=== PATIENT | male | born 1960 | race Caucasian/White ===

== ENCOUNTER 2017-01-14 04:12 | Emergency (ER) | payer OTHER ==
[2017-01-14] MEDS ORDERED: FLUORESCEIN SODIUM 1 MG STRIP OP ONE ×2 (04:17→04:21)
[2017-01-14] MEDS ORDERED: PROPARACAINE 0.5% 15 ML OPHT DROP ONE (04:17)
[2017-01-14] MEDS ORDERED: PROPARACAINE 0.5% 15 ML OPHT DROP RTEYE ONE (04:21)
--- NOTE | 2017-01-14 04:53 | EDPHY ---
H & P Stated Complaint: severe R eye pain, denies trauma HPI/ROS: HPI CHIEF COMPLAINT: Right eye pain HISTORY OF PRESENT ILLNESS: Patient very pleasant 56-year-old male, presents emergency room with right eye pain that started around 6:00 a.m. or close 24 hours ago yesterday. Patient states that he woke up with some right eye discomfort persisted all day describes a sharp stabbing pain to his right eye. Photosensitivity. He denies direct trauma. Had pain all day. The pain is progressively gotten worse throughout the evening and was unable to sleep last night decided come the emergency room. Has been very tearful. Had no loss of vision. No blurry vision. Describes the pain as sharp stabbing. Tells me he has been dealing with some intermittent right eye pain over the past year he did have trauma to his right eye with a tree branch approximately 8 months ago. He lives in [place]. He was seen by his general practitioner as well as a nurse supervisor and had an eye exam and was told that everything was okay. He has no history of glaucoma. He is here on vacation he woke up yesterday with severe eye pain that has been persistent and got worse. He denies any direct trauma. Past Medical History: No significant medical history Past Surgical History: No significant surgical Social History: Denies daily use drugs alcohol tobacco products here with his , from [place]. Family History: Noncontributory ROS REVIEW OF SYSTEMS: A comprehensive 10 point review of systems is otherwise negative aside from elements mentioned in the history of present illness. Exam Constitutional triage nursing summary reviewed, vital signs reviewed, awake/ alert. Eyes Right EYE: Injected conjunctiva, pupil equal round react to light 4 mm and reactive, anterior chamber shows no flare on slit-lamp, there is no fluorescein uptake on exam. The pupil is not irregular. Posterior eye exam without dilatation is unremarkable. The globe is soft. No significant proptosis. It is noted that the upper and lower eyelid is swollen. There is no erythema or discharge. No Rhea sign. Extraocular movements intact. Visual acuity reviewed. I did check his eye pressure with the Helio-Pen 16, 14, 18 Right eye. I did henri his lids best as possible I do not appreciate foreign body. There is no corneal abrasion on exam. Left eye exam is normal. Unremarkable conjunctiva. Normal anterior chamber. Normal pupil. No APD. I did instill proparacaine in his right eye which gave him great relief. Pain well controlled. HENT normal inspection, atraumatic, moist mucus membranes, no epistaxis, neck supple/ no meningismus, no raccoon eyes. Respiratory clear to auscultation bilaterally, normal breath sounds, no respiratory distress, no wheezing. Cardiovascular rate normal, regular rhythm, no murmur, no edema, distal pulses normal. Gastrointestinal soft, non-tender, no rebound, no guarding, normal bowel sounds, no distension, no pulsatile mass. Genitourinary no CVA tenderness. Musculoskeletal no midline vertebral tenderness, full range of motion, no calf swelling, no tenderness of extremities, no meningismus, good pulses, neurovascularly intact. Skin pink, warm, & dry, no rash, skin atraumatic. Neurologic awake, alert and oriented x 3, AAOx3, moves all 4 extremities equally, motor intact, sensory intact, CN II-XII intact, normal cerebellar, normal vision, normal speech. Psychiatric normal mood/affect. Heme/Lymph/Immune no lymphadenopathy. Differential Diagnosis: Includes but is not limited to in a particular order, corneal abrasion, iritis, uveitis, foreign body, corneal abrasion, glaucoma retro-orbital tumor, redness detachment. Medical Decision Making: Plan for this patient will be after eye exam, proparacaine, fluorescein, slit-lamp exam, Helio-Pen exam, CT of the orbit. Also will consult Ophthalmology. Will most likely need to place patient on pain medicine antibiotic and a drops prophylactically and close ophthalmology follow-up. Re-evaluation: [id number]: I did do a bedside ultrasound of this patient's eye. The posterior chamber looks good on ultrasound. There is no vitreous hemorrhage. No debris. Redness does not appear abnormal. There is no newspaper sign. The lens appears to be in appropriate position anterior chamber shows no debris. Unremarkable orbit ultrasound the right eye. Images were saved on the ultrasound machine. Due To the amount of pain the patient is having I did send him to CT scan of his orbit. Rule out foreign body or something posterior to his eye. There is no proptosis on exam. CT scan of the orbit. The results of the study are negative for foreign body, no evidence of mass, unremarkable CT scan of the orbits. The study was read by Dr. Leonard. I viewed the images myself on the PACS system. V/A Reviewed. 0517: Consulted Opthomalogy at this time. Dr. Pino should be glad to see this patient office. She does recommend erythromycin ointment. Patient is to call their for an appointment. Should be seen today. 0521: Patient is resting comfortably feels much better after proparacaine eyedrops. I did consult Ophthalmology and spoke with her. She be glad to see the patient today. Recommends erythromycin ointment. I will place him on this. Ibuprofen cool compresses Hellier. She feels is most likely a corneal issue given a gets better with proparacaine. Source: Patient - Personal History Current Tetanus/Diphtheria Vaccine: Unsure - Medical/Surgical History Hx Asthma: No Hx Chronic Respiratory Disease: No Hx Diabetes: No Hx Cardiac Disease: No Hx Renal Disease: No Hx Cirrhosis: No Hx Alcoholism: No Hx HIV/AIDS: No Hx Splenectomy or Spleen Trauma: No Other PMH: none - Social History Smoking Status: Never smoked Constitutional: Initial Vital Signs Temperature (C) 36 C 01/14/17 04:14 Heart Rate 56 L 01/14/17 04:14 Respiratory Rate 22 H 01/14/17 04:14 Blood Pressure 190/94 H 01/14/17 04:14 O2 Sat (%) 98 01/14/17 04:14 O2 Delivery Mode Room Air Allergies/Adverse Reactions: No Known Allergies Allergy (Unverified 01/14/17 04:14) Home Medications: Medication Instructions Recorded Erythromycin 0.5% 3.5 gm OP BID #1 opht.oint 01/14/17 Hydrocodone/APAP 5/325 [Hellier 1 - 2 tab PO Q4H PRN #14 tab 01/14/17 5/325] Ibuprofen [Motrin (*)] 800 mg PO Q6-8PRN #7 tab 01/14/17 Tobramycin 0.3% [Tobrex 0.3% opht 1 - 2 drops OP Q4 #1 opht.btl 01/14/17 drops (*)] Medical Decision Making - Data Points Medications Given: Discontinued Medications Fluorescein Sodium ([id number]) 1 mg OP EDNOW ONE Stop: 01/14/17 04:22 Last Admin: 01/14/17 04:25 Dose: 1 mg Ibuprofen (Motrin) 800 mg PO EDNOW ONE Stop: 01/14/17 04:55 Last Admin: 01/14/17 05:08 Dose: 800 mg Proparacaine HCl (Alcaine 0.5%) 1 drops RTEYE ONCE ONE Stop: 01/14/17 04:22 Last Admin: 01/14/17 04:25 Dose: 1 drop Departure - Departure Disposition: Home, Routine, Self-Care Clinical Impression: Eye pain Qualifiers: Laterality: right Qualified Code(s): H57.11 - Ocular pain, right eye Condition: Good Instructions: Eye Pain (ED) Additional Instructions: 1.I do recommend that you follow up closely this morning with Ophthalmology. 2. Use cool compresses on your eye. Do not rub your eye or wipe it. 3. Take ibuprofen for mild pain. Hellier for severe pain. 4. Antibiotic eyedrops as prescribed. 5. Return emergency room if there is further symptoms or questions or concerns worsening pain fever swelling Referrals: [facility] [Other] - As per Instructions Abby Pino MD [Non Staff Provider (MD)] - As per Instructions Prescriptions: Erythromycin 0.5% 3.5 gm OP BID #1 opht.oint Hydrocodone/APAP 5/325 [Hellier 5/325] 1 - 2 tab PO Q4H PRN #14 tab PRN Reason: Pain, Moderate Ibuprofen [Motrin (*)] 800 mg PO Q6-8PRN #7 tab Tobramycin 0.3% [Tobrex 0.3% opht drops (*)] 1 - 2 drops OP Q4 #1 opht.btl
[2017-01-14] MEDS ORDERED: IBUPROFEN 200 MG TAB PO ONE (04:54)
[2017-01-14] MEDS ORDERED: HYDROCOD/APAP 5/325 PREPACK#6 BTL TAKEHOME ONE ×2 (05:28→05:44)
[2017-01-14 05:43] VITALS: BP 141/79; PULSE 45; RESP 16; TEMP 98.2; O2SAT 96
== END 2017-01-14 05:48 | disposition home or self-care (01) ==
DX: H57.11 Ocular pain, right eye (principal)